=== PATIENT | female | born 1955 ===

== ENCOUNTER 2018-02-07 11:35 | Day surgery (SDC) | payer SELFPAY ==
[2018-02-07 11:49] VITALS: BMI 22.6
[2018-02-07 12:03] VITALS: RESP 18
[2018-02-07] MEDS ORDERED: Lidocaine 1% Inj (20ml) ONE (12:23)
--- NOTE | 2018-02-07 12:46 | CP.SDSHP ---
Same Day Surgery H & P - History Proposed Procedure: US guided FNA of thyroid nodules Pre-Op Diagnosis: Thyroid nodules - Allergies Allergies: Allergies No Known Allergies Allergy (Verified 02/07/18 11:48) - Physical Exam Vital Signs: Vital Signs 02/07/18 02/07/18 02/07/18 12:01 12:04 12:24 Temperature 98.3 F 99.2 F Pulse Rate 76 76 74 Respiratory 18 18 Rate Blood Pressure 132/73 115/69 O2 Sat by Pulse 97 Oximetry Mental Status: Alert & Oriented x3 Neuro: WNL Heart: WNL GI: WNL - Impression Impression: Pt with multiple thyroid nodules. Plan US guided FNA of dominant left and right thyroid nodules. Pt. Evaluated Today:Candidate for Anesthesia & Procedure: No - Date & Time Date: 02/07/18 Time: 12:40 Short Stay Discharge - Short Stay Discharge Admitting Diagnosis/Reason for Visit: E04.2 Disposition: HOME/ ROUTINE Referrals: Terry Kelly MD [Primary Care Provider] -
--- NOTE | 2018-02-07 13:04 | PCM.SURG1 ---
Surgeon's Initial Post Op Note - Surgeon's Notes Surgeon: Valdo Sandoval MD Seismograph Computer: [email or web address] Type of Anesthesia: Local Pre-Operative Diagnosis: Thyroid nodules Operative Findings: US showed multiple enlarged right and left thyroid nodules Post-Operative Diagnosis: Thyroid nodules Operation Performed: US guided FNA of right lower pole, midple and left midpole thyroid nodules. Specimen/Specimens Removed: 25 g FNA x 4 passes per nodule Estimated Blood Loss: EBL {In ML}: 1 Blood Products Given: N/A Drains Used: No Drains Post-Op Condition: Good Date of Surgery/Procedure: 02/07/18 Time of Surgery/Procedure: 13:00
[2018-02-07 13:20] VITALS: BP 141/59; PULSE 64; TEMP 98.3; O2SAT 98
--- NOTE | 2018-02-07 15:11 | US ---
PROCEDURE: Date of Procedure: 02/07/2018 PROCEDURE: 1. Ultrasound guided FNA of left thyroid nodule, CPT 73962 2. Ultrasound guided FNA of two dominant RIGHT thyroid nodule, 3. Ultrasound guidance for FNA, 56099 Medications: 1% Lidocaine HISTORY: Enlarged thyroid nodules. TECHNIQUE: Following informed consent and procedure time-out, a limited ultrasound patient's neck confirmed the presence of multiple enlarged right and left thyroid nodules. Complex 3 centimeter nodule is present in the right midpole. Large 2.5 and 3 centimeter nodule is present in a right lower pole and midpole. After the patient's neck was prepped and draped in the usual sterile fashion, the skin was anesthetized with 1% lidocaine. Ultrasound-guided fine needle aspiration was then performed of the dominant left thyroid nodule. A total of 4 passes were made into the nodule with 25 gauge needle under ultrasound guidance. The FNA specimen was sent for routine pathology. Ultrasound guided FNA was then performed of the dominant right thyroid lower pole nodule in the right midpole nodule. Again 4 passes were made into each nodule with 25 gauge needle. The FNA specimen was sent for routine pathology. Post biopsy ultrasound showed no hematoma. IMPRESSION: Ultrasound-guided FNA of the dominant two right and left thyroid nodules.
== END 2018-02-07 13:45 | disposition home or self-care (01) ==
LOC: H.OPSURG 11:35
PROVIDERS: ATTEND Family Medicine
DX: E04.2 Nontoxic multinodular goiter (principal)